=== PATIENT | female | born 1985 | race Hispanic/Latino ===

== ENCOUNTER 2017-07-27 00:19 | Inpatient (IN) | payer BC, MEDICAID ==
--- NOTE | 2017-07-27 01:01 | ED PDOC ---
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 Pain x 2 days. Has happened before, had abdominal us earlier this year, showed fatty liver. Patient went to PMD yesterday with complaint was given unknown medication for N/V, sent home. Pt did not take med. No fevers/chills. Pain has been constant. Left sided in nature, no radiation. Has not been eating or drinking much past 2 days. Denies urinary/vaginal sx. Vomited x 3 -vomitus looked like food/clear liquid. FDLMP: sometime in June. 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 [place]. (Jason Muniz) Past Medical History - Provider Review Nursing Documentation Reviewed: Yes - Travel History Have you recently traveled outside [place] w/in the past 3 mons?: No - Infectious Disease Hx of Infectious Diseases: None - Tetanus Immunization Tetanus Immunization: Unknown - Reproductive Menopause: No - Cardiac Hx Cardiac Disorders: No - Pulmonary Hx Respiratory Disorders: No - Neurological Hx Neurological Disorder: Yes Hx Seizures: Yes Other/Comment: [place] De Liao syndrome - HEENT Hx HEENT Disorder: No - Renal Hx Renal Disorder: No - Endocrine/Metabolic Hx Endocrine Disorders: No - Hematological/Oncological Hx Blood Disorders: No - Integumentary Hx Dermatological Disorder: No - Musculoskeletal/Rheumatological Hx Musculoskeletal Disorders: No - Gastrointestinal Hx Gastrointestinal Disorders: No - Genitourinary/Gynecological Hx Genitourinary Disorders: No - Psychiatric Hx Psychophysiologic Disorder: No Hx Substance Use: No <Jason Muniz - Last Filed: 07/27/17 06:26> Family/Social History - Physician Review Nursing Documentation Reviewed: Yes Family/Social History: Diabetes, Other Smoking Status: Never Smoked Hx Alcohol Use: No Hx Substance Use: No Hx Substance Use Treatment: No <Jason Muniz - Last Filed: 07/27/17 06:26> Allergies/Home Meds <Jason Muniz - Last Filed: 07/27/17 06:26> <Christian Patrick - Last Filed: 07/27/17 06:52> Allergies/Adverse Reactions: Allergies No Known Allergies Allergy (Verified 07/27/17 00:34) Home Medications: Home Meds Medication Instructions Recorded Confirmed carBAMazepine [TEGretol] 37.5 ml PO DAILY 07/27/17 07/27/17 Review of Systems - Review of Systems Constitutional: absent: Fatigue, Weight Change, Fevers Eyes: absent: Vision Changes, Photophobia ENT: absent: Hearing Changes, Tinnitus Respiratory: absent: SOB, Cough Cardiovascular: absent: Chest Pain, Palpitations Gastrointestinal: Abdominal Pain, Constipation, Vomiting Genitourinary Female: absent: Dysuria, Frequency Musculoskeletal: absent: Arthralgias, Back Pain Skin: absent: Rash, Pruritis Neurological: absent: Headache, Dizziness Endocrine: absent: Diaphoresis, Polyuria Hemo/Lymphatic: absent: Adenopathy, Easy Bleeding Psychiatric: absent: Anxiety, Depression <Jason Muniz - Last Filed: 07/27/17 06:26> Physical Exam Vital Signs Reviewed: Yes Appearance: Positive for: Non-Toxic Pain Distress: Mild - Systems Exam Head: Present: Atraumatic, Normocephalic Pupils: Present: PERRL Extroacular Muscles: Present: EOMI Respiratory/Chest: Present: Clear to Auscultation, Good Air Exchange. No: Respiratory Distress Cardiovascular: Present: Normal S1, S2, Tachycardic Abdomen: Present: Tenderness, Normal Bowel Sounds. No: Distention, Peritoneal Signs, Rebound, Guarding, McBurney's Point Tender, Rovsing's Sign Present Upper Extremity: Present: Normal Inspection. No: Cyanosis, Edema Lower Extremity: Present: Normal Inspection. No: Edema Neurological: Present: CN II-XII Intact, Speech Normal Skin: Present: Warm, Dry Psychiatric: Present: Alert, Oriented x 3 <Jason Muniz - Last Filed: 07/27/17 06:26> Vital Signs Temp Pulse Resp BP Pulse Ox 07/27/17 06:46 100.1 F H 118 H 18 127/87 100 07/27/17 03:24 122 H 18 122/72 96 07/27/17 00:35 98.2 F 122 H 20 117/84 98 Medical Decision Making <Jaosn Muniz - Last Filed: 07/27/17 06:26> - Lab Interpretations I have reviewed the lab results: Yes - RAD Interpretation Contracts Advisor: Radiologist - EKG Interpretation Interpreted by ED Physician: Yes Type: 12 lead EKG <Christian Patrick - Last Filed: 07/27/17 06:52> ED Course and Treatment: Impression: Pt seen and evaluated with hospitalist medical director. Pt, whose past medical history includes Cornela de Liao syndrome, presented for abdomina pain for 2 days. Aware and agree with HPI, clinical findings, plan, and management. 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 07/27/17 06:[address] Flores, rolloff truck driver, awaiting call back. 07/27/17 06:[address] Flores, who is aware and states he will follow-up outpatient. 07/27/17 06:[address] Jones, requests surgical consult, Dr. Saeed silva. (Christian Patrick) - Lab Interpretations Lab Results: 07/27/17 01:05 07/27/17 01:05 Lab Results 07/27/17 02:20: Urine Color Yellow, Urine Appearance Sl cloudy, Urine pH 6.0, Ur Specific [place] >= 1.030, Urine Protein 100 H, Urine Glucose (UA) Negative, Urine Ketones >=80, Urine Blood Large H, Urine Nitrate Negative, Urine Bilirubin Moderate H, Urine Urobilinogen 1.0 H, Ur Leukocyte Esterase Negative, Urine RBC 10 - 15, Urine WBC 5 - 10, Ur Epithelial Cells 4 - 5, Urine Bacteria Many, Urine Other Uyeast, Urine HCG, Qual Negative 07/27/17 01:05: TSH 3rd Generation 0.95 07/27/17 01:05: pO2 91 H, VBG pH 7.40, VBG pCO2 38.0 L, VBG HCO3 23.5, VBG Total CO2 24.7, VBG O2 Sat (Calc) 99.1 H, VBG Base Excess -1.1 L, VBG Potassium 4.1, Sodium 139.0, Chloride 103.0, Glucose 139 H, Lactate 2.0, FiO2 21.0, Venous Blood Potassium 4.1 07/27/17 01:05: Sodium 143, Chloride 104, Potassium 3.3 L, Carbon Dioxide 23, Anion Gap 20, BUN 11, Creatinine 0.7, Est GFR ( Amer) > 60, Est GFR (Non- Af Amer) > 60, Random Glucose 130 H, Calcium 9.1, Total Bilirubin 1.1, AST 23, ALT 30, Alkaline Phosphatase 81, Total Protein 8.5 H, Albumin 4.5, Globulin 4.0 , Albumin/Globulin Ratio 1.1, Amylase 45, Lipase 31 07/27/17 01:05: WBC 22.6 H, RBC 4.57, Hgb 12.6, Hct 38.1, MCV 83.4, MCH 27.6, MCHC 33.1, RDW 14.5, Plt Count 392, MPV 9.7, Gran % 86.0 H, Lymph % (Auto) 6.8 L , Pepin % (Auto) 7.1 H, Eos % (Auto) 0.0 L, Baso % (Auto) 0.1, Gran # 19.46 H, Lymph # 1.5, Pepin # 1.6 H, Eos # 0.0, Baso # 0.02 - RAD Interpretation Radiology Orders: 07/27/17 00:55 ABD & PELVIS IV CONTRAST ONLY [CT] Stat - Medication Orders Current Medication Orders: Acetaminophen (Tylenol 325mg Tab) 650 mg PO Q4H PRN PRN Reason: Pain, Mild (1-3) Sodium Chloride (Sodium Chloride 0.9%) 1,000 mls @ 100 mls/hr IV .Q10H JASON Last Admin: 07/27/17 01:19 Dose: 999 mls/hr Comments: administered as bolus as per verbal order from Dr. Darnell Lassiter Start Stop Document 07/27/17 01:19 YP (Rec: 07/27/17 01:19 YP [id number]) Intravenous Solution Start Date 07/27/17 Start Time 01:05 End Date 07/27/17 End time 02:05 Total Infusion Time 60 Sodium Chloride (Sodium Chloride 0.9%) 1,000 mls @ 100 mls/hr IV .Q10H STA Stop: 07/27/17 15:21 Last Admin: 07/27/17 05:31 Dose: 100 mls/hr eMAR Start Stop Document 07/27/17 05:31 RD (Rec: 07/27/17 05:31 RD [id number]) Intravenous Solution Start Date 07/27/17 Start Time 05:31 Morphine Sulfate (Morphine) 2 mg IVP Q4H PRN PRN Reason: Pain, moderate (4-7) Ondansetron HCl (Zofran Inj) 4 mg IVP Q4H PRN PRN Reason: Nausea/Vomiting Discontinued Medications Acetaminophen (Tylenol 325mg Tab) 650 mg PO STAT STA Stop: 07/27/17 06:49 Potassium Chloride (Potassium Chloride 20 Meq/100 Ml) 20 meq in 100 mls @ 50 mls/hr IVPB ONCE ONE Stop: 07/27/17 06:13 Last Admin: 07/27/17 04:29 Dose: 50 mls/hr eMAR Start Stop Document 07/27/17 04:29 RD (Rec: 07/27/17 04:29 RD [id number]) Intravenous Solution Start Date 07/27/17 Start Time 04:29 End Date 07/27/17 End time 06:29 Total Infusion Time 120 Aztreonam (Azactam 1 Gm) 100 mls @ 100 mls/hr IVPB STAT STA PRN Reason: Protocol Stop: 07/27/17 06:09 Metronidazole (Flagyl) 500 mg in 100 mls @ 100 mls/hr IVPB STAT STA PRN Reason: Protocol Stop: 07/27/17 06:08 Last Admin: 07/27/17 06:41 Dose: 100 mls/hr eMAR Start Stop Document 07/27/17 06:41 RD (Rec: 07/27/17 06:41 RD [id number]) Intravenous Solution Start Date 07/27/17 Start Time 06:41 End Date 07/27/17 End time 07:41 Total Infusion Time 60 Morphine Sulfate (Morphine) 2 mg IVP STAT STA Stop: 07/27/17 02:51 Last Admin: 07/27/17 02:56 Dose: 2 mg MAR Pain Assessment Document 07/27/17 02:56 RD (Rec: 07/27/17 02:56 RD [id number]) Pain Reassessment Is this a pain reassessment? No Sleep Is patient sleeping during reassessment? No Presence of Pain Presence of Pain Yes IVP Administration Document 07/27/17 02:56 RD (Rec: 07/27/17 02:56 RD [id number]) Charges for Administration # of IVP Administrations 1 Morphine Sulfate (Morphine) 2 mg IVP STAT STA Stop: 07/27/17 05:20 Last Admin: 07/27/17 05:31 Dose: 2 mg MAR Pain Assessment Document 07/27/17 05:31 RD (Rec: 07/27/17 05:31 RD [id number]) Pain Reassessment Is this a pain reassessment? Yes Sleep Is patient sleeping during reassessment? No Presence of Pain Presence of Pain Yes IVP Administration Document 07/27/17 05:31 RD (Rec: 07/27/17 05:31 RD [id number]) Charges for Administration # of IVP Administrations 1 Disposition/Present on Arrival - Present on Arrival Any Indicators Present on Arrival: No History of DVT/PE: No History of Uncontrolled Diabetes: No Urinary Catheter: No History of Decub. Ulcer: No History Surgical Site Infection Following: None - Disposition Have Diagnosis and Disposition been Completed?: Yes Disposition Time: 06:00 <Jason Muniz - Last Filed: 07/27/17 06:26> <Christian Patrick - Last Filed: 07/27/17 06:52> - Disposition Diagnosis: Pelvic mass in female Disposition: HOSPITALIZED Patient Problems: Current Active Problems Problem Status Onset Pelvic mass in female Acute Condition: GUARDED
[2017-07-27] MEDS: Sodium Chloride 0.9% 1,000 ML IV SCH ×3 (01:19→20:31)
[2017-07-27 01:27] LABS: BASO # 0.02 K/mm3 (0.0-2.0); BASO % 0.1 % (0.0-3.0); GRAN # 19.46 (1.4-6.5); HEMATOCRIT 38.1 % (36.0-48.0); LYMPH # 1.5 (1.2-3.4); LYMPH % 6.8 % (22.0-35.0); MEAN CELL VOLUME 83.4 fl (80.0-105.0); MEAN CORPUSCULAR HEMOGLOBIN 27.6 pg (25.0-35.0); MEAN CORPUSCULAR HGB CONC 33.1 g/dl (31.0-37.0); MEAN PLATELET VOLUME 9.7 fl (7.0-11.0); MONO # 1.6 (0.1-0.6); MONO % 7.1 % (1.0-6.0); RED CELL DISTRIBUTION WIDTH 14.5 % (11.5-14.5); WHITE BLOOD COUNT 22.6 10^3/ul (4.5-11.0)
[2017-07-27 02:22] LABS: ALKALINE PHOSPHATASE 81 U/L (38-126); ALT/SGPT 30 U/L (7-56); AMYLASE 45 U/L (35-125); AST/SGOT 23 U/L (14-36); BILIRUBIN,TOTAL 1.1 mg/dL (0.2-1.3); BLOOD UREA NITROGEN 11 mg/dL (7-21); CALCIUM 9.1 mg/dL (8.4-10.5); CARBON DIOXIDE 23 mmol/L (21-33); CHLORIDE 104 mmol/L (98-107); GFR AFRICAN-AMERICAN > 60; GLUCOSE,RANDOM 130 mg/dL (70-110); LIPASE 31 U/L (23-300); POTASSIUM 3.3 mmol/L (3.6-5.0); SODIUM 143 mmol/L (132-148); TOTAL PROTEIN 8.5 g/dL (5.8-8.3)
[2017-07-27] MEDS ORDERED: Iohexol 350 MG/100 ML VIAL ONE (02:42)
[2017-07-27 02:44] LABS: ALB/GLOB RATIO 1.1 (1.1-1.8)
[2017-07-27 02:46] LABS: URINE BILIRUBIN MODERATE (NEGATIVE); URINE BLOOD LARGE (NEGATIVE); URINE GLUCOSE (UA) NEGATIVE (NEGATIVE); URINE KETONE >=80 mg/dL (NEGATIVE); URINE LEUKOCYTE ESTERASE NEGATIVE Leu/uL (NEGATIVE); URINE PROTEIN 100 mg/dL (<30 mg/dL)
[2017-07-27 02:47] LABS: URINE APPEARANCE SL CLOUDY (CLEAR); URINE COLOR YELLOW (YELLOW)
[2017-07-27] MEDS ORDERED: Morphine 2 mg/ml ISec IVP STA ×2 (02:50→05:19)
[2017-07-27 03:06] LABS: URINE BACTERIA MANY (NEG)
--- NOTE | 2017-07-27 04:35 | CT ---
EXAM: CT Abdomen and Pelvis With Intravenous Contrast EXAM DATE/TIME: 07/27/2017 12:55 AM CLINICAL HISTORY: 31 years old, female; Pain; Abdominal pain; Generalized TECHNIQUE: Axial computed tomography images of the abdomen and pelvis with intravenous contrast. All CT scans at this facility use one or more dose reduction techniques, viz.: automated exposure control; ma/kV adjustment per patient size (including targeted exams where dose is matched to indication; i.e. head); or iterative reconstruction technique. MIP reconstructed images were created and reviewed. Coronal and sagittal reformatted images were created and reviewed. CONTRAST: 95 mL of omni 350 administered intravenously. COMPARISON: None is available. FINDINGS: LIMITATIONS: Mild streak/motion artifact. LOWER THORAX: No infiltrate seen in the lung bases. ABDOMEN: LIVER: Fatty infiltration of the liver. No liver lesions are seen. GALLBLADDER AND BILE DUCTS: Calcifications in the gallbladder neck region, most likely secondary to peripherally calcified gallstones. Biliary ductal dilatation, with the common bile duct measuring up to 1 cm in diameter. No cause for this finding is seen by CT. No CT evidence of acute cholecystitis. PANCREAS: No CT evidence of acute pancreatitis. SPLEEN: No acute abnormality of the spleen identified. ADRENALS: No acute abnormality of the adrenal glands identified. KIDNEYS AND URETERS: Scattered tiny fluid density lesions in the kidneys bilaterally. The largest of these measures 6 mm. Consistent with the [employer]?s Incidental Findings Committee Report (J Am Rhett Radiol 2010): Unless the patient?s specific circumstances suggest otherwise, any cystic kidney lesion less than 1.0 cm not otherwise characterized in this report as possessing suspicious or indeterminate imaging features is/are highly likely to be benign and do not require follow-up imaging or biopsy. No acute abnormality of the kidneys identified. STOMACH AND BOWEL: Scattered fluid-filled and mildly dilated small bowel loops are seen. There is no definite single abrupt transition point seen in the small bowel. There is no evidence of diffuse small bowel dilatation. Findings are most likely due to a mild ileus of the small bowel. Otherwise, no significant abnormality of the bowel is identified. APPENDIX: Normal appendix is not seen, however, there are no significant inflammatory changes visualized in the expected location of the appendix to suggest appendicitis. Recommend clinical correlation. PELVIS: BLADDER: No acute abnormality of the bladder identified. REPRODUCTIVE: Large, round cystic mass in the upper pelvis and lower abdomen, highly suspicious for a right ovarian/adnexal cystic mass. This measures 11 x 11 x 10 cm. It has an overall CT attenuation compatible with simple fluid and an enhancing soft tissue rim. No definite associated calcifications, large internal solid components, or associated gas. This mass appears to connect with the right ovary, image 89/series 604. There is mild, diffuse infiltration of the nearby abdominal and pelvic fat and a small amount of nearby pelvic fluid. Uterus demonstrates two separate endometrial canals. Findings highly suspicious for an underlying Mullerian duct anomaly, such as a bicornuate uterus or septate uterus. ABDOMEN and PELVIS: INTRAPERITONEAL SPACE: Small to moderate amount of pelvic and abdominal free fluid. No evidence of free air. BONES/JOINTS: No acute fractures or other acute bony abnormality noted. SOFT TISSUES: No acute abnormality of the visualized soft tissues is seen. VASCULATURE: No evidence of abdominal aortic aneurysm. No evidence of periaortic hemorrhage. LYMPH NODES: No evidence of diffuse lymphadenopathy. IMPRESSION: - 11 x 11 cm round, cystic mass in the upper pelvis and lower abdomen, highly suspicious for a large right ovarian/adnexal cystic mass. Given the size of this lesion, a cystic ovarian neoplasm is not excluded. Pelvic ultrasound or MRI would be helpful for further evaluation. - Small to moderate amount of pelvic and abdominal free fluid. - Small bowel findings which are most likely due to a mild ileus of the small bowel. - Biliary ductal dilatation, cause not identified. Recommend correlation with LFTs for laboratory evidence of biliary obstruction, and further workup as indicated, such as with right upper quadrant ultrasound. - Otherwise, no evidence of significant acute process. - Gallstones, with no CT evidence of acute cholecystitis. - Uterus findings highly suspicious for an underlying Mullerian duct anomaly, such as a bicornuate uterus or septate uterus. - See above for remaining findings.
[2017-07-27 04:45] LABS: VENOUS BLOOD GAS BASE EXCESS -1.1 mmol/L (0.0-2.0)
[2017-07-27] MEDS ORDERED: metroNIDAZOLE IV 500 mg/100 ml 500 MG/100 ML BAG IVPB STA (05:09)
[2017-07-27] MEDS ORDERED: Aztreonam 1 Gm in NS 100mL 100 ML IVPB STA (05:10)
[2017-07-27] MEDS ORDERED: Sodium Chloride 0.9% 1,000 ML IV STA (05:22)
[2017-07-27] MEDS ORDERED: Morphine 2 mg/ml ISec IVP PRN (05:23)
[2017-07-27 08:54] VITALS: BMI 39.4
--- NOTE | 2017-07-27 09:23 | CP.PCM.CON ---
<Porter Vazquez - Last Filed: 07/27/17 09:41> History of Present Illness - History of Present Illness History of Present Illness: General Surgery Consult For Dr. 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 She denies any similar events in the past. She denies any pain with menstruation and reports a highly irregular menstrual cycle. Abdominal CT in the ED showed a large ovarian cyst and fluid in the pelvis as well as a dilated CBD. PMH: marta de hillman syndrome PSH: had 10 teeth removed, foot sx Allergies: NKDA FH: DM, Crohn's dx Review of Systems - Review of Systems All systems: reviewed and no additional remarkable complaints except Past Patient History - Infectious Disease Hx of Infectious Diseases: None - Tetanus Immunizations Tetanus Immunization: Unknown - Past Social History Smoking Status: Never Smoked - CARDIAC Hx Cardiac Disorders: No - PULMONARY Hx Respiratory Disorders: No - NEUROLOGICAL Hx Neurological Disorder: Yes (weakness) - HEENT Hx HEENT Problems: No - RENAL Hx Chronic Kidney Disease: No - ENDOCRINE/METABOLIC Hx Endocrine Disorders: No - HEMATOLOGICAL/ONCOLOGICAL Hx Blood Disorders: No - INTEGUMENTARY Hx Dermatological Problems: No - MUSCULOSKELETAL/RHEUMATOLOGICAL Hx Falls: No - GASTROINTESTINAL Other/Comment: n/v/d - GENITOURINARY/GYNECOLOGICAL Hx Urinary Tract Infection: Yes - PSYCHIATRIC Hx Psychophysiologic Disorder: No Hx Substance Use: No - SURGICAL HISTORY Hx Surgeries: Yes (flat foot correction bilateral) Meds Allergies/Adverse Reactions: Allergies Allergy/AdvReac Type Severity Reaction Status Date / Time No Known Allergies Allergy Verified 07/27/17 00:34 - Medications Medications: Current Medications Acetaminophen (Tylenol 325mg Tab) 650 mg PO Q4H PRN PRN Reason: Pain, Mild (1-3) Sodium Chloride (Sodium Chloride 0.9%) 1,000 mls @ 100 mls/hr IV .Q10H JASON Last Admin: 07/27/17 01:19 Dose: 999 mls/hr Sodium Chloride (Sodium Chloride 0.9%) 1,000 mls @ 100 mls/hr IV .Q10H STA Stop: 07/27/17 15:21 Last Admin: 07/27/17 05:31 Dose: 100 mls/hr Morphine Sulfate (Morphine) 2 mg IVP Q4H PRN PRN Reason: Pain, moderate (4-7) Ondansetron HCl (Zofran Inj) 4 mg IVP Q4H PRN PRN Reason: Nausea/Vomiting Physical Exam - Constitutional Appears: Non-toxic, No Acute Distress - Head Exam Head Exam: ATRAUMATIC, NORMOCEPHALIC - Eye Exam Eye Exam: EOMI - ENT Exam ENT Exam: Mucous Membranes Moist - Respiratory Exam Respiratory Exam: NORMAL BREATHING PATTERN - Cardiovascular Exam Cardiovascular Exam: REGULAR RHYTHM - GI/Abdominal Exam GI & Abdominal Exam: Soft. absent: Tenderness - Neurological Exam Neurological exam: Alert, Oriented x3 - Psychiatric Exam Psychiatric exam: Normal Affect, Normal Mood - Skin Skin Exam: Dry, Intact Results - Vital Signs Recent Vital Signs: Last Vital Signs Temp 99.3 F 07/27/17 08:32 Pulse 124 H 07/27/17 08:32 Resp 18 07/27/17 08:32 BP 115/75 07/27/17 08:32 Pulse Ox 100 07/27/17 06:46 - Labs Result Diagrams: 07/27/17 01:05 07/27/17 01:05 Assessment & Plan - Assessment and Plan (Free Text) Assessment: This is a 31F with a large ovarian cyst Recommend IR evaluation for aspiration Abdominal US for evaluation of CBD Pelvic US for US evaluation of Ovarian Cyst Will continue to follow D/W Dr. Saeed Vazquez PGY2 <Santhosh Tipton - Last Filed: 07/28/17 12:44> Meds - Medications Medications: Current Medications Acetaminophen (Tylenol 325mg Tab) 650 mg PO Q4H PRN PRN Reason: Pain, Mild (1-3) Sodium Chloride (Sodium Chloride 0.9%) 1,000 mls @ 100 mls/hr IV .Q10H JASON Last Admin: 07/27/17 01:19 Dose: 999 mls/hr Sodium Chloride (Sodium Chloride 0.9%) 1,000 mls @ 100 mls/hr IV .Q10H STA Stop: 07/27/17 15:21 Last Admin: 07/27/17 05:31 Dose: 100 mls/hr Morphine Sulfate (Morphine) 2 mg IVP Q4H PRN PRN Reason: Pain, moderate (4-7) Ondansetron HCl (Zofran Inj) 4 mg IVP Q4H PRN PRN Reason: Nausea/Vomiting Results - Vital Signs Recent Vital Signs: Last Vital Signs Temp 99.3 F 07/27/17 08:32 Pulse 124 H 07/27/17 08:32 Resp 18 07/27/17 08:32 BP 115/75 07/27/17 08:32 Pulse Ox 100 07/27/17 06:46 - Labs Result Diagrams: 07/28/17 09:10 07/28/17 09:10 Labs: Laboratory Results - last 24 hr 07/27/17 09:30 pO2 65 H VBG pH 7.38 VBG pCO2 35.0 L VBG HCO3 20.7 L VBG Total CO2 21.8 L VBG O2 Sat (Calc) 95.0 H VBG Base Excess -3.8 L VBG Potassium 3.2 L Sodium 141.0 Chloride 112.0 H Glucose 121 H Lactate 1.2 FiO2 21.0 Venous Blood Potassium 3.2 L Assessment & Plan - Assessment and Plan (Free Text) Assessment: Pt has Ileus(N/V) secondary to Large R Ovarian cyst(Leaking) and 10mm CD Dilation Surgery not imminwnt now Poss Laparoscopy vs CT Guided Aspiration This consult done under my direct supervision Brittany Tipton MD FACS Plan: This consult done under my direct supervision Brittany Tipton MD FACS
--- NOTE | 2017-07-27 09:27 | CARD ---
APPROVED REPORT EKG Measurement Heart [id number] HI [id number] <Conclusion> Sinus tachycardia Voltage criteria for left ventricular hypertrophy PRWP NSSTW changes
[2017-07-27 10:12] LABS: VENOUS BLOOD GAS BASE EXCESS -3.8 mmol/L (0.0-2.0); VENOUS BLOOD PH 7.38 (7.32-7.43)
[2017-07-27] MEDS: cefTRIAXone 1 gm 1 GM/100 ML BAG IVPB SCH (11:52)
[2017-07-27] MEDS: metroNIDAZOLE IV 500 mg/100 ml 500 MG/100 ML BAG IVPB SCH ×2 (14:14→22:25)
--- NOTE | 2017-07-27 15:04 | US ---
HISTORY: CBD COMPARISON: CT 07/27/2017 TECHNIQUE: Sonographic evaluation of the abdomen. FINDINGS: LIVER: Measures 14.71 x 9.66 cm. Normal echogenicity of the liver parenchyma. No mass. No intrahepatic bile duct dilatation. GALLBLADDER: Gallstones. No inflammatory changes. No focal tenderness COMMON BILE DUCT: Measures 8.8 mm. No stones. No dilatation. PANCREAS: Not visualize RIGHT KIDNEY: Measures 9.55 x 4.25 x 5.35cm. Normal echogenicity. No calculus, mass, or hydronephrosis. LEFT KIDNEY: Measures 10.11 x 5.35 x 5.16cm. Normal echogenicity. No calculus, mass, or hydronephrosis. SPLEEN: Normal in size and contour. No mass. 10.0 x 4.1 AORTA: Not visualize IVC: Not visualize OTHER FINDINGS: As seen on CT there is a cystic lesion in the pelvis that extends into the lower abdomen. This measures 11 x 12 cm. Minimal internal echoes are seen. IMPRESSION: Cystic lesion in the pelvis extending into the lower abdomen. Gallstones.
--- NOTE | 2017-07-27 15:09 | US ---
HISTORY: Ovarian Cyst COMPARISON: CT scan 07/27/2017 TECHNIQUE: FINDINGS: UTERUS: There is a bicornuate uterus. ENDOMETRIUM: There is thickening of the endometrium which measures 1.5 cm CERVIX: No cervical abnormality identified. RIGHT OVARY: There is a large cystic lesion in the right ovary extending into the lower abdomen. This measures 10 cm in diameter. Minimal internal echoes are seen. There are no septations or solid components. Blood flow is seen in the wall of the cyst. LEFT OVARY: Measures 3.5 x 2.25 x 3.06 cm. No solid mass. Normal flow. There is a 3 by 1.6 x 2.6 cm cyst in the left ovary FREE FLUID: No significant free fluid noted. OTHER FINDINGS: None. IMPRESSION: 10 cm cystic lesion in the right ovary extending into the lower abdomen. Bicornuate or septated uterus
--- NOTE | 2017-07-27 21:53 | HP ---
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 The patient is not able to give much history. Father was at the bedside who states she was doing okay up until day when she came back from a little get together with the family, she started to throw up. She was complaining of some abdominal discomfort and had nausea and had two or three episodes of vomiting. No history of hemoptysis. No hematemesis. No rectal bleeding. According to father she had multiple foot surgeries. She is able to ambulate on her own with minimal assistance. She also has history of seizure disorder, she has been on Tegretol, at one point it stopped, but she started to have seizures again, so she was placed back on that. Her durable medical equipment technician Dr. Padilla, who has been taking care of her happened to be her cousin also, informed me that usually with this syndrome people can have small bowel issues, but she has been [place] so far she has never had any bowel obstruction or any problem. Her history is also significant for irregular bleeding. However, she does not go to any FIELD CASE [facility]NAGER for that. ALLERGIES: SHE IS NOT ALLERGIC TO ANY MEDICATION. MEDICATION: At home; she is on Tegretol 37.5 mg p.o. daily. SOCIAL HISTORY: She lives with her father. No history of smoking or alcohol use. REVIEW OF SYSTEMS: She has some left lower quadrant discomfort, but no vomiting. So, she is admitted. PHYSICAL EXAMINATION GENERAL: She is awake and alert, able to communicate. VITAL SIGNS: She has a temperature 100.1, this morning it is 99.3, pulse 124, respirations 18, blood pressure 115/75. LUNGS: Bilateral good airflow. No rhonchi or crackle. HEART: S1 and S2 audible. ABDOMEN: Soft. Not distended. NEUROLOGICAL: She is awake, alert, and able to communicate. LABORATORY DATA: WBC 22.6, hemoglobin 12.6, hematocrit 38.1, platelet of 392. Chemistry; sodium 143, potassium 3.3, chloride 104, CO2 of 23, BUN 11, creatinine 0.7, and blood sugar 130. LFTs are within normal limits. Urinalysis shows moderate bilirubin and large blood. She had CT scan of the abdomen and pelvis done, it shows 11 x 11 cm round cystic mass in the upper pelvis and lower abdomen highly suspicious for large right ovarian cyst. Small to moderate amount of pelvic, abdominal free fluid, small bowel finding are most likely due to mild ileus of small bowel, biliary ductal dilatation not identified. She has gallstone with no evidence of cholecystitis. ASSESSMENT: 1. Fever etiology unknown yet. 2. Ovarian cyst. 3. Small bowel ileus. 4. 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 PLAN: We will keep the patient n.p.o., we will give her IV fluid. We will start her on Rocephin and metronidazole. Flagyl and supplement potassium. Follow up CBC and CMP in a.m. Juan Manuel Jones MD
[2017-07-27] MEDS ORDERED: CARBAMAZEPINE 100 MG/5 ML PO SCH (22:00)
[2017-07-27] MEDS ORDERED: carBAMazepine Chew Tab 100 MG Chew Tab PO SCH (22:13)
[2017-07-27] MEDS: carBAMazepine Chew Tab 100 MG Chew Tab PO SCH (22:25)
[2017-07-28] MEDS: metroNIDAZOLE IV 500 mg/100 ml 500 MG/100 ML BAG IVPB SCH ×3 (05:45→22:07)
[2017-07-28] MEDS: Sodium Chloride 0.9% 1,000 ML IV SCH ×2 (07:30→18:00)
[2017-07-28] MEDS ORDERED: Loperamide Hydrochloride 1 mg/5 ml Cup PO ONE (09:00)
[2017-07-28 09:29] LABS: BASO # 0.01 K/mm3 (0.0-2.0); BASO % 0.1 % (0.0-3.0); EOS % 0.2 % (1.5-5.0); GRAN # 11.75 (1.4-6.5); GRAN % 84.7 % (50.0-68.0); HEMATOCRIT 31.9 % (36.0-48.0); LYMPH # 1.3 (1.2-3.4); LYMPH % 9.4 % (22.0-35.0); MEAN CELL VOLUME 84.4 fl (80.0-105.0); MEAN CORPUSCULAR HEMOGLOBIN 27.2 pg (25.0-35.0); MEAN CORPUSCULAR HGB CONC 32.3 g/dl (31.0-37.0); MEAN PLATELET VOLUME 9.7 fl (7.0-11.0); MONO # 0.8 (0.1-0.6); MONO % 5.6 % (1.0-6.0); WHITE BLOOD COUNT 13.9 10^3/ul (4.5-11.0)
[2017-07-28 09:31] LABS: ALKALINE PHOSPHATASE 59 U/L (38-126); ALT/SGPT 29 U/L (7-56); AST/SGOT 23 U/L (14-36); BILIRUBIN,TOTAL 0.8 mg/dL (0.2-1.3); BLOOD UREA NITROGEN 6 mg/dL (7-21); CALCIUM 8.5 mg/dL (8.4-10.5); CARBON DIOXIDE 20 mmol/L (21-33); CHLORIDE 109 mmol/L (98-107); GFR AFRICAN-AMERICAN > 60; GLUCOSE,RANDOM 110 mg/dL (70-110); POTASSIUM 3.4 mmol/L (3.6-5.0); SODIUM 141 mmol/L (132-148)
[2017-07-28] MEDS: cefTRIAXone 1 gm 1 GM/100 ML BAG IVPB SCH (10:05)
--- NOTE | 2017-07-28 12:29 | CP.PCM.PN ---
<Lee Cody - Last Filed: 07/28/17 12:25> Subjective - Date & Time of Evaluation Date of Evaluation: 07/28/17 Time of Evaluation: 12:29 - Subjective Subjective: PGY1 Note for Dr. Tipton Patient seen and examined at bedside. Patient is sitting up in bed with family at bedside. Pain free. Complaining of new onset diarrhea. No other complaints at this time Objective - Vital Signs/Intake and Output Vital Signs (last 24 hours): Temp Pulse Resp BP Pulse Ox 99.9 F H 107 H 20 127/74 95 07/28/17 06:00 07/28/17 06:00 07/28/17 06:00 07/28/17 06:00 07/28/17 06:00 Intake and Output: 07/28/17 07/28/17 06:59 18:59 Intake Total 2700 Balance 2700 - Medications Medications: Current Medications Acetaminophen (Tylenol 325mg Tab) 650 mg PO Q4H PRN PRN Reason: Pain, Mild (1-3) Carbamazepine (Tegretol) 100 mg PO HS JASON PRN Reason: Protocol Last Admin: 07/27/17 22:25 Dose: 100 mg Sodium Chloride (Sodium Chloride 0.9%) 1,000 mls @ 100 mls/hr IV .Q10H JASON Last Admin: 07/28/17 07:30 Dose: 100 mls/hr Ceftriaxone Sodium (Rocephin 1 Gram Ivpb) 1 gm in 100 mls @ 100 mls/hr IVPB DAILY JASON PRN Reason: Protocol Last Admin: 07/28/17 10:05 Dose: 100 mls/hr Metronidazole (Flagyl) 500 mg in 100 mls @ 100 mls/hr IVPB Q8 JASON PRN Reason: Protocol Last Admin: 07/28/17 05:45 Dose: 100 mls/hr Potassium Chloride (Potassium Chloride 20 Meq/100 Ml) 20 meq in 100 mls @ 50 mls/hr IVPB ONCE ONE Stop: 07/28/17 13:44 Last Admin: 07/28/17 11:46 Dose: 50 mls/hr Morphine Sulfate (Morphine) 2 mg IVP Q4H PRN PRN Reason: Pain, moderate (4-7) Ondansetron HCl (Zofran Inj) 4 mg IVP Q4H PRN PRN Reason: Nausea/Vomiting Pantoprazole Sodium (Protonix Inj) 40 mg IVP DAILY [facility] Last Admin: 07/28/17 10:05 Dose: 40 mg - Labs Labs: 07/28/17 09:10 07/28/17 09:10 - Constitutional Appears: Non-toxic - Head Exam Head Exam: ATRAUMATIC, NORMAL INSPECTION, NORMOCEPHALIC - Eye Exam Pupil Exam: NORMAL ACCOMODATION - ENT Exam ENT Exam: Mucous Membranes Moist - Respiratory Exam Respiratory Exam: Clear to Ausculation Bilateral - Cardiovascular Exam Cardiovascular Exam: REGULAR RHYTHM - GI/Abdominal Exam GI & Abdominal Exam: Soft, Normal Bowel Sounds. absent: Distended, Tenderness - Neurological Exam Neurological Exam: Alert, Awake, Oriented x3 - Psychiatric Exam Psychiatric exam: Normal Affect, Normal Mood - Skin Skin Exam: Dry, Intact, Normal Color, Warm Assessment and Plan - Assessment and Plan (Free Text) Assessment: 31F w/ R Ovarian cyst Plan: * F/U OBGYN Recs * Possible CT Guided Aspiration w/ IR * Further management per primary team * Further reccs per Dr. Tipton <Santhosh Tipton - Last Filed: 07/28/17 12:47> Objective - Vital Signs/Intake and Output Vital Signs (last 24 hours): Temp Pulse Resp BP Pulse Ox 99.9 F H 107 H 20 127/74 95 07/28/17 06:00 07/28/17 06:00 07/28/17 06:00 07/28/17 06:00 07/28/17 06:00 Intake and Output: 07/28/17 07/28/17 06:59 18:59 Intake Total 2700 Balance 2700 - Medications Medications: Current Medications Acetaminophen (Tylenol 325mg Tab) 650 mg PO Q4H PRN PRN Reason: Pain, Mild (1-3) Carbamazepine (Tegretol) 100 mg PO HS JASON PRN Reason: Protocol Last Admin: 07/27/17 22:25 Dose: 100 mg Sodium Chloride (Sodium Chloride 0.9%) 1,000 mls @ 100 mls/hr IV .Q10H JASON Last Admin: 07/28/17 07:30 Dose: 100 mls/hr Ceftriaxone Sodium (Rocephin 1 Gram Ivpb) 1 gm in 100 mls @ 100 mls/hr IVPB DAILY JASON PRN Reason: Protocol Last Admin: 07/28/17 10:05 Dose: 100 mls/hr Metronidazole (Flagyl) 500 mg in 100 mls @ 100 mls/hr IVPB Q8 JASON PRN Reason: Protocol Last Admin: 07/28/17 05:45 Dose: 100 mls/hr Potassium Chloride (Potassium Chloride 20 Meq/100 Ml) 20 meq in 100 mls @ 50 mls/hr IVPB ONCE ONE Stop: 07/28/17 13:44 Last Admin: 07/28/17 11:46 Dose: 50 mls/hr Morphine Sulfate (Morphine) 2 mg IVP Q4H PRN PRN Reason: Pain, moderate (4-7) Ondansetron HCl (Zofran Inj) 4 mg IVP Q4H PRN PRN Reason: Nausea/Vomiting Pantoprazole Sodium (Protonix Inj) 40 mg IVP DAILY [facility] Last Admin: 07/28/17 10:05 Dose: 40 mg - Labs Labs: 07/28/17 09:10 07/28/17 09:10 Assessment and Plan - Assessment and Plan (Free Text) Assessment: If Affiliate Marketing Coordinator cannot see this pt Dr Rodriguez is willing to aspirate the cyst for symptom relief and determine absent malignancy--NB The is mod free fluid(ie leakage) This can be done tomorrow if the family agrees Brittany Tipton MD FACS
--- NOTE | 2017-07-28 16:41 | CP.PCM.CON ---
History of Present Illness - History of Present Illness History of Present Illness: 31-year-old female admitted to [facility] approximately 2-1/2 days ago due to abdominal pain. Patient found to have a 10 cm simple cyst. Since admission to hospital, patient reports pain has subsided. Patient denies any pain at this time. Patient reports discomfort of 0 out of 10. I discussed with patient general information regarding ovarian cysts. At this time, patient denies any pain, nausea or vomiting, abnormal bleeding, discharge , dysuria. Past Patient History - Infectious Disease Hx of Infectious Diseases: None - Tetanus Immunizations Tetanus Immunization: Unknown - Past Social History Smoking Status: Never Smoked - CARDIAC Hx Cardiac Disorders: No - PULMONARY Hx Respiratory Disorders: No - NEUROLOGICAL Hx Neurological Disorder: Yes (weakness) - HEENT Hx HEENT Problems: No - RENAL Hx Chronic Kidney Disease: No - ENDOCRINE/METABOLIC Hx Endocrine Disorders: No - HEMATOLOGICAL/ONCOLOGICAL Hx Blood Disorders: No - INTEGUMENTARY Hx Dermatological Problems: No - MUSCULOSKELETAL/RHEUMATOLOGICAL Hx Falls: No - GASTROINTESTINAL Other/Comment: n/v/d - GENITOURINARY/GYNECOLOGICAL Hx Urinary Tract Infection: Yes - PSYCHIATRIC Hx Psychophysiologic Disorder: No Hx Substance Use: No - SURGICAL HISTORY Hx Surgeries: Yes (flat foot correction bilateral) Meds Allergies/Adverse Reactions: Allergies Allergy/AdvReac Type Severity Reaction Status Date / Time No Known Allergies Allergy Verified 07/27/17 00:34 - Medications Medications: Current Medications Acetaminophen (Tylenol 325mg Tab) 650 mg PO Q4H PRN PRN Reason: Pain, Mild (1-3) Carbamazepine (Tegretol) 100 mg PO HS JASON PRN Reason: Protocol Last Admin: 07/27/17 22:25 Dose: 100 mg Sodium Chloride (Sodium Chloride 0.9%) 1,000 mls @ 100 mls/hr IV .Q10H JASON Last Admin: 07/28/17 07:30 Dose: 100 mls/hr Ceftriaxone Sodium (Rocephin 1 Gram Ivpb) 1 gm in 100 mls @ 100 mls/hr IVPB DAILY JASON PRN Reason: Protocol Last Admin: 07/28/17 10:05 Dose: 100 mls/hr Metronidazole (Flagyl) 500 mg in 100 mls @ 100 mls/hr IVPB Q8 JASON PRN Reason: Protocol Last Admin: 07/28/17 14:53 Dose: 100 mls/hr Morphine Sulfate (Morphine) 2 mg IVP Q4H PRN PRN Reason: Pain, moderate (4-7) Ondansetron HCl (Zofran Inj) 4 mg IVP Q4H PRN PRN Reason: Nausea/Vomiting Pantoprazole Sodium (Protonix Inj) 40 mg IVP DAILY JASON Last Admin: 07/28/17 10:05 Dose: 40 mg Physical Exam - Constitutional Appears: Well, No Acute Distress - ENT Exam ENT Exam: Mucous Membranes Moist - GI/Abdominal Exam Additional comments: Soft, nontender, nondistended. No rebound. No guarding. No tenderness even with deep palpation Results - Vital Signs Recent Vital Signs: Last Vital Signs Temp 99.9 F H 07/28/17 06:00 Pulse 107 H 07/28/17 14:00 Resp 20 07/28/17 06:00 BP 127/74 07/28/17 06:00 Pulse Ox 95 07/28/17 06:00 - Labs Result Diagrams: 07/28/17 09:10 07/28/17 09:10 Labs: Laboratory Results - last 24 hr 07/28/17 07/28/17 09:10 09:10 WBC 13.9 H D RBC 3.78 Hgb 10.3 L D Hct 31.9 L MCV 84.4 MCH 27.2 MCHC 32.3 RDW 15.0 H Plt Count 287 MPV 9.7 Gran % 84.7 H Lymph % (Auto) 9.4 L Sandoval % (Auto) 5.6 Eos % (Auto) 0.2 L Baso % (Auto) 0.1 Gran # 11.75 H Lymph # 1.3 Sandoval # 0.8 H Eos # 0.0 Baso # 0.01 Sodium 141 Potassium 3.4 L Chloride 109 H Carbon Dioxide 20 L Anion Gap 16 BUN 6 L Creatinine 0.5 L Est GFR ( Amer) > 60 Est GFR (Non-Af Amer) > 60 Random Glucose 110 Calcium 8.5 Total Bilirubin 0.8 AST 23 ALT 29 Alkaline Phosphatase 59 Total Protein 7.0 Albumin 3.5 Globulin 3.5 Albumin/Globulin Ratio 1.0 L - Imaging and Cardiology US - abdomen Status: Image reviewed by me, Report reviewed by me Assessment & Plan - Assessment and Plan (Free Text) Assessment: 10 cm simple ovarian cyst. Patient asymptomatic at this time. Plan: Discussed ultrasound findings with patient. Discussed general information regarding ovarian cyst with patient. I discussed with patient the possibility of needing a procedure or surgery due to the cyst. Because patient is asymptomatic at this time without any pain, I would recommend follow-up as an outpatient. I discussed this plan with patient and all patient questions answered. I also discussed the plan with the general surgery resident present. - Date & Time Date: 07/28/17 Time: 16:43
--- NOTE | 2017-07-28 21:19 | PN ---
DATE: SUBJECTIVE: The patient is a 31-year-old challenged, still has persistent diarrhea. Denies any abdominal pain. No more nausea. PHYSICAL EXAMINATION: VITAL SIGNS: She has a temperature of 99.9, pulse of 107, respirations of 20, and blood pressure 127/74. LUNGS: Bilateral fair airflow. No rhonchi or crackles. HEART: S1 and S2 audible. ABDOMEN: Soft and nontender. No rebound. No guarding. NEUROLOGIC: She is awake and alert. LABORATORY EXAMINATION: WBC is 13.9, hemoglobin is 10.3, hematocrit is 31.9, and platelets of 287. Chemistry: Sodium 141, potassium 3.4, chloride 109, CO2 of 20, BUN 6, creatinine 0.5, and blood sugar of 110. Urine growing gram-negative rods. Stool for C. diff is negative. Blood cultures are negative. ASSESSMENT: 1. Ileus with gastroenteritis. 2. Hypokalemia. 3. Ovarian cyst. 4. Gram-negative and gram-positive urinary tract infection. 5. 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 PLAN: The patient was given just one dose of Imodium. Currently, she is on metronidazole. Calcium has been supplemented. We will continue her Protonix and Rocephin. Continue her on IV fluids. MRCP has been ordered by Dr. Tipton, we will follow that. We will follow up electrolytes in a.m. Juan Manuel Jones MD
[2017-07-28] MEDS: carBAMazepine Chew Tab 100 MG Chew Tab PO SCH (22:09)
[2017-07-29 04:30] LABS: BASO # 0.01 K/mm3 (0.0-2.0); BASO % 0.1 % (0.0-3.0); EOS # 0.1 (0.0-0.7); EOS % 0.5 % (1.5-5.0); GRAN # 8.16 (1.4-6.5); GRAN % 76.8 % (50.0-68.0); LYMPH # 1.8 (1.2-3.4); LYMPH % 16.5 % (22.0-35.0); MEAN CELL VOLUME 82.9 fl (80.0-105.0); MEAN CORPUSCULAR HEMOGLOBIN 26.8 pg (25.0-35.0); MEAN CORPUSCULAR HGB CONC 32.3 g/dl (31.0-37.0); MEAN PLATELET VOLUME 9.6 fl (7.0-11.0); MONO # 0.7 (0.1-0.6); MONO % 6.1 % (1.0-6.0); RED CELL DISTRIBUTION WIDTH 14.9 % (11.5-14.5); WHITE BLOOD COUNT 10.6 10^3/ul (4.5-11.0)
[2017-07-29 04:57] LABS: ALB/GLOB RATIO 0.9 (1.1-1.8); ALKALINE PHOSPHATASE 105 U/L (38-126); ALT/SGPT 43 U/L (7-56); AST/SGOT 26 U/L (14-36); BILIRUBIN,TOTAL 0.5 mg/dL (0.2-1.3); BLOOD UREA NITROGEN 4 mg/dL (7-21); CALCIUM 8.2 mg/dL (8.4-10.5); CARBON DIOXIDE 25 mmol/L (21-33); CHLORIDE 107 mmol/L (98-107); GFR AFRICAN-AMERICAN > 60; GLUCOSE,RANDOM 95 mg/dL (70-110); SODIUM 142 mmol/L (132-148); TOTAL PROTEIN 6.3 g/dL (5.8-8.3)
[2017-07-29 04:58] LABS: POTASSIUM 2.7 mmol/L (3.6-5.0)
[2017-07-29] MEDS: Sodium Chloride 0.9% 1,000 ML IV SCH ×2 (05:57→13:40)
[2017-07-29] MEDS: metroNIDAZOLE IV 500 mg/100 ml 500 MG/100 ML BAG IVPB SCH ×3 (05:58→22:06)
--- NOTE | 2017-07-29 07:19 | CP.PCM.PN ---
<Katia Denton - Last Filed: 07/29/17 07:14> Subjective - Date & Time of Evaluation Date of Evaluation: 07/29/17 Time of Evaluation: 07:00 - Subjective Subjective: Surgery: Dr. Tipton Pt seen and examined. This morning pt states she's doing well and denies any complaints. She states her diarrhea has improved significantly and she's feeling a lot better. Denies N/V, F/C. Objective - Vital Signs/Intake and Output Vital Signs (last 24 hours): Temp Pulse Resp BP Pulse Ox 98.9 F 98 H 20 117/69 97 07/29/17 06:00 07/29/17 06:00 07/29/17 06:00 07/29/17 06:00 07/29/17 06:00 Intake and Output: 07/29/17 07/29/17 06:59 18:59 Intake Total 180 Balance 180 - Medications Medications: Current Medications Acetaminophen (Tylenol 325mg Tab) 650 mg PO Q4H PRN PRN Reason: Pain, Mild (1-3) Carbamazepine (Tegretol) 100 mg PO HS JASON PRN Reason: Protocol Last Admin: 07/28/17 22:09 Dose: 100 mg Sodium Chloride (Sodium Chloride 0.9%) 1,000 mls @ 100 mls/hr IV .Q10H [facility] Last Admin: 07/29/17 05:57 Dose: 100 mls/hr Metronidazole (Flagyl) 500 mg in 100 mls @ 100 mls/hr IVPB Q8 JASON PRN Reason: Protocol Last Admin: 07/29/17 05:58 Dose: 100 mls/hr Ceftriaxone Sodium (Rocephin 1 Gram Ivpb (D5w)) 1 gm in 100 mls @ 100 mls/hr IVPB DAILY JASON PRN Reason: Protocol Potassium Chloride (Potassium Chloride 20 Meq/100 Ml) 20 meq in 100 mls @ 50 mls/hr IVPB Q2H [facility] Stop: 07/29/17 09:59 Last Admin: 07/29/17 06:07 Dose: 50 mls/hr Morphine Sulfate (Morphine) 2 mg IVP Q4H PRN PRN Reason: Pain, moderate (4-7) Ondansetron HCl (Zofran Inj) 4 mg IVP Q4H PRN PRN Reason: Nausea/Vomiting Pantoprazole Sodium (Protonix Inj) 40 mg IVP DAILY JASON Last Admin: 07/28/17 10:05 Dose: 40 mg - Labs Labs: 07/29/17 04:10 07/29/17 04:10 - Constitutional Appears: Well, No Acute Distress - Head Exam Head Exam: ATRAUMATIC, NORMOCEPHALIC - ENT Exam ENT Exam: Mucous Membranes Moist - Respiratory Exam Respiratory Exam: NORMAL BREATHING PATTERN - Cardiovascular Exam Cardiovascular Exam: RRR - GI/Abdominal Exam GI & Abdominal Exam: Soft. absent: Distended, Tenderness - Neurological Exam Neurological Exam: Alert, Awake, Oriented x3 - Skin Skin Exam: Dry, Warm Assessment and Plan - Assessment and Plan (Free Text) Assessment: 31F with R ovarian cyst, admitted for abdominal pain & vomiting Plan: - Yesterday, pt's US findings of ovarian cyst were discussed with pt and father at bedside along with Dr. Cerrato from set up machinist. As per his recs, the cyst is no longer causing the pt problems and should be followed up at an outpt basis. If pt experiences pain in the future or other related issues, Dr. Cerrato will f/ u as outpt and at that time other measures can be taken to evaluate the etiology of the cyst. Pt and family understand and are in agreement with this plan. - pt getting MRCP today to evaluate CBD dilatation - will start diet after and if tolerates; can be DC home - d/w Dr. Tipton <Santhosh Tipton - Last Filed: 07/29/17 16:27> Objective - Vital Signs/Intake and Output Vital Signs (last 24 hours): Temp Pulse Resp BP Pulse Ox 98.9 F 95 H 20 134/82 97 07/29/17 12:00 07/29/17 12:00 07/29/17 12:00 07/29/17 12:00 07/29/17 06:00 Intake and Output: 07/29/17 07/29/17 06:59 18:59 Intake Total 180 Balance 180 - Medications Medications: Current Medications Acetaminophen (Tylenol 325mg Tab) 650 mg PO Q4H PRN PRN Reason: Pain, Mild (1-3) Carbamazepine (Tegretol) 100 mg PO HS JASON PRN Reason: Protocol Last Admin: 07/28/17 22:09 Dose: 100 mg Sodium Chloride (Sodium Chloride 0.9%) 1,000 mls @ 100 mls/hr IV .Q10H [facility] Last Admin: 07/29/17 13:40 Dose: 100 mls/hr Metronidazole (Flagyl) 500 mg in 100 mls @ 100 mls/hr IVPB Q8 JASON PRN Reason: Protocol Last Admin: 07/29/17 14:58 Dose: 100 mls/hr Ceftriaxone Sodium (Rocephin 1 Gram Ivpb (D5w)) 1 gm in 100 mls @ 100 mls/hr IVPB DAILY JASON PRN Reason: Protocol Last Admin: 07/29/17 11:15 Dose: 100 mls/hr Morphine Sulfate (Morphine) 2 mg IVP Q4H PRN PRN Reason: Pain, moderate (4-7) Ondansetron HCl (Zofran Inj) 4 mg IVP Q4H PRN PRN Reason: Nausea/Vomiting Pantoprazole Sodium (Protonix Inj) 40 mg IVP DAILY [facility] Last Admin: 07/29/17 11:15 Dose: 40 mg Potassium Chloride (K-Dur 20 Meq Er Tab) 20 meq PO TID JASON Stop: 07/31/17 10:01 Last Admin: 07/29/17 14:58 Dose: 20 meq - Labs Labs: 07/29/17 04:10 07/29/17 14:20 Assessment and Plan - Assessment and Plan (Free Text) Assessment: Family discussion (and with PMD Dr Padilla) that pt will need Lap Cholecystectomy Brittany Tipton MD FACS
[2017-07-29] MEDS: Potassium Chloride 20 mEq ER Tab PO SCH ×3 (11:15→18:06)
[2017-07-29] MEDS: cefTRIAXone 1 gm 1 GM/100 ML BAG IVPB SCH (11:15)
--- NOTE | 2017-07-29 11:19 | CON ---
DATE: 07/28/2017 This patient was seen and evaluated earlier today. The patient's father was at bedside at the time of examination. REASON FOR CONSULTATION: Abdominal pain. 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 The patient had a Thanksgiving dinner and after that episodes of vomiting. These initially subsided but the patient had recurrence of the symptoms. The patient was brought to the hospital because of this. No history of any bleeding per rectum. The patient had abdominal pain. The patient had a CAT scan done, which showed large ovarian cystic lesion noticed. The patient was also found to have multiple gallstones with a mildly dilated common bile duct of 9 mm. The patient has been ordered to have an MRCP. The patient is waiting to hear from them. PAST MEDICAL HISTORY: Seizure disorder. ALLERGIES: No known drug allergy. MEDICATIONS: Include Tegretol, she takes it for her seizure disorder. SOCIAL HISTORY: Denies smoking. No alcohol. REVIEW OF SYSTEMS: Positive as above. Other systems reviewed. PHYSICAL EXAMINATION GENERAL: The patient is lying on the bed, not in acute distress. VITAL SIGNS: Temperature is 99, pulse 104, blood pressure is 123/75. HEENT: Atraumatic, anicteric. NECK: Supple. HEART: S1, S2 heard. LUNGS: Bilateral air entry present. ABDOMEN: Softly distended, no tenderness. EXTREMITIES: No edema, no cyanosis. LABORATORY DATA: Hemoglobin 10.3, hematocrit 31.9, WBC is 13.9, it was 22.6, platelets 387. Chemistry is essentially unremarkable. IMPRESSION: This is a 36-year-old patient admitted with abdominal pain, nausea . The differential diagnoses to include peptic ulcer disease, erosive esophagitis; neoplasia also to be considered. Clinically, the patient has gastroparesis. The CT findings are reviewed with the family. PLAN: We would recommend; 1. Follow up of the MRCP, rule out any CBD stones, multiple gallstones and dilated common bile duct. 2. We will continue the empiric PPI therapy. I would continue the H2 kleber. 3. Stool for culture. We will continue to closely follow. 4. We will put the patient on a clear liquid diet. The patient would benefit from elective EGD and colonoscopy. Last colonoscopy was done a few years ago. Thank you very much for allowing us to participate in the care of the patient. Olivia Monet MD
--- NOTE | 2017-07-29 13:29 | CP.PCM.PN ---
<Maribell Crowley - Last Filed: 07/29/17 13:21> Subjective - Date & Time of Evaluation Date of Evaluation: 07/29/17 Time of Evaluation: 10:45 - Subjective Subjective: Seen and examined at bedside earlier this a.m., father at bedside, no further episodes of diarrhea, did have dose of Imodium yesterday. No abdominal pain, nausea, vomiting, fever or chills. Stool C. difficile is negative, stool culture pending. Patient evaluated by DIRECTOR BUSINESS INTEGRATION yesterday. Recommend outpatient follow-up, patient asymptomatic, head animal trainer consult was reviewed. Patient is nothing by mouth for MRCP. Objective - Vital Signs/Intake and Output Vital Signs (last 24 hours): Temp Pulse Resp BP Pulse Ox 98.9 F 95 H 20 134/82 97 07/29/17 12:00 07/29/17 12:00 07/29/17 12:00 07/29/17 12:00 07/29/17 06:00 Intake and Output: 07/29/17 07/29/17 06:59 18:59 Intake Total 180 Balance 180 - Medications Medications: Current Medications Acetaminophen (Tylenol 325mg Tab) 650 mg PO Q4H PRN PRN Reason: Pain, Mild (1-3) Carbamazepine (Tegretol) 100 mg PO HS JASON PRN Reason: Protocol Last Admin: 07/28/17 22:09 Dose: 100 mg Sodium Chloride (Sodium Chloride 0.9%) 1,000 mls @ 100 mls/hr IV .Q10H [facility] Last Admin: 07/29/17 05:57 Dose: 100 mls/hr Metronidazole (Flagyl) 500 mg in 100 mls @ 100 mls/hr IVPB Q8 JASON PRN Reason: Protocol Last Admin: 07/29/17 05:58 Dose: 100 mls/hr Ceftriaxone Sodium (Rocephin 1 Gram Ivpb (D5w)) 1 gm in 100 mls @ 100 mls/hr IVPB DAILY JASON PRN Reason: Protocol Last Admin: 07/29/17 11:15 Dose: 100 mls/hr Morphine Sulfate (Morphine) 2 mg IVP Q4H PRN PRN Reason: Pain, moderate (4-7) Ondansetron HCl (Zofran Inj) 4 mg IVP Q4H PRN PRN Reason: Nausea/Vomiting Pantoprazole Sodium (Protonix Inj) 40 mg IVP DAILY [facility] Last Admin: 07/29/17 11:15 Dose: 40 mg Potassium Chloride (K-Dur 20 Meq Er Tab) 20 meq PO TID JASON Stop: 07/31/17 10:01 Last Admin: 07/29/17 11:15 Dose: 20 meq - Labs Labs: 07/29/17 04:10 07/29/17 04:10 - Constitutional Appears: No Acute Distress - Eye Exam Eye Exam: Normal appearance. absent: Scleral icterus - ENT Exam ENT Exam: Mucous Membranes Moist - Neck Exam Neck Exam: Normal Inspection - Respiratory Exam Respiratory Exam: Decreased Breath Sounds, NORMAL BREATHING PATTERN. absent: Respiratory Distress - Cardiovascular Exam Cardiovascular Exam: +S1, +S2 - GI/Abdominal Exam GI & Abdominal Exam: Distended, Soft, Normal Bowel Sounds. absent: Guarding, Tenderness, Rebound - Extremities Exam Extremities Exam: absent: Calf Tenderness, Pedal Edema - Neurological Exam Neurological Exam: Alert, Awake, Oriented x3 Assessment and Plan - Assessment and Plan (Free Text) Assessment: Assessment: Improved abdominal and vomiting, differentials gastroenteritis/ileus Dilated CBD Gastroparesis Hypokalemia 10 cm simple ovarian cyst Plan: Pending MRCP, follow up results Monitor electrolytes and replete as needed Continue PPI Continue IV antibiotics, flagyl/ceftriaxone Surgical follow-up Seen and discussed w/ Dr. Shankar. <Olivia Monet V - Last Filed: 07/29/17 23:27> Objective - Vital Signs/Intake and Output Vital Signs (last 24 hours): Temp Pulse Resp BP Pulse Ox 98.9 F 106 H 20 134/82 97 07/29/17 12:00 07/29/17 22:00 07/29/17 12:00 07/29/17 12:00 07/29/17 06:00 Intake and Output: 07/29/17 07/30/17 18:59 06:59 Intake Total 1200 Balance 1200 - Medications Medications: Current Medications Acetaminophen (Tylenol 325mg Tab) 650 mg PO Q4H PRN PRN Reason: Pain, Mild (1-3) Carbamazepine (Tegretol) 100 mg PO HS JASON PRN Reason: Protocol Last Admin: 07/29/17 22:17 Dose: 100 mg Sodium Chloride (Sodium Chloride 0.9%) 1,000 mls @ 100 mls/hr IV .Q10H [facility] Last Admin: 07/29/17 13:40 Dose: 100 mls/hr Metronidazole (Flagyl) 500 mg in 100 mls @ 100 mls/hr IVPB Q8 JASON PRN Reason: Protocol Last Admin: 07/29/17 22:06 Dose: 100 mls/hr Ceftriaxone Sodium (Rocephin 1 Gram Ivpb (D5w)) 1 gm in 100 mls @ 100 mls/hr IVPB DAILY JASON PRN Reason: Protocol Last Admin: 07/29/17 11:15 Dose: 100 mls/hr Morphine Sulfate (Morphine) 2 mg IVP Q4H PRN PRN Reason: Pain, moderate (4-7) Ondansetron HCl (Zofran Inj) 4 mg IVP Q4H PRN PRN Reason: Nausea/Vomiting Pantoprazole Sodium (Protonix Inj) 40 mg IVP DAILY [facility] Last Admin: 07/29/17 11:15 Dose: 40 mg Potassium Chloride (K-Dur 20 Meq Er Tab) 20 meq PO TID [facility] Stop: 07/31/17 10:01 Last Admin: 07/29/17 18:06 Dose: 20 meq - Labs Labs: 07/29/17 04:10 07/29/17 14:20 Attending/Attestation - Attestation I have personally seen and examined this patient.: Yes I have fully participated in the care of the patient.: Yes I have reviewed all pertinent clinical information, including history, physical exam and plan: Yes Notes (Text): this is an addendum to the GI progress report dictated by me Carline LOCO. The patient was seen and evaluated earlier. Patient's father was at bedside Patient is tolerating diet and was feeling better On examination abdomen was soft no tenderness WBC count shows downward trend MRCP report was reviewed CBD normal no stones. Patient has multiple gallstones part of the symptoms could be related to the biliary colic Patient has a large ovarian cyst Patient Would need a DIRECTOR BUSINESS INTEGRATION and a surgical follow-up as an outpatient Patient Would needed surgery for symptomatic gallstones 07/29/17 23:24
--- NOTE | 2017-07-29 17:45 | MRI ---
PROCEDURE: Magnetic Resonance Cholangiopancreatography HISTORY: Evaluate dilated CBD COMPARISON: Comparison is made to the previous CT and ultrasound of the abdomen dated 07/27/2017. TECHNIQUE: Multiplanar, multisequence MR images of the abdomen were obtained, including heavily T2 weighted MRCP images of the biliary system. Rotating maximum intensity projection images of the biliary system were generated. FINDINGS: MRCP: The common bile duct is of a normal caliber. No evidence of choledocholithiasis. No intrahepatic biliary ductal dilatation. LIVER: Unremarkable. GALLBLADDER: Multiple gallstones are noted. No evidence of cholecystitis. SPLEEN: Unremarkable. PANCREAS: Unremarkable. ADRENALS: Unremarkable. KIDNEYS: Unremarkable. AORTA: No aneurysm. ASCITES: Small amount of ascites seen in the upper abdomen. OTHER FINDINGS: Incidentally noted is 13.1 x 11.8 centimeter cystic lesion at the midline lower abdomen/ upper pelvis best described and seen in the previous CT. IMPRESSION: The CBD is normal in caliber and shape. No evidence of choledocholithiasis. Cholelithiasis without evidence of acute cholecystitis. Small ascites in the upper abdomen. Partially imaged large cystic mass at the midline lower abdomen .
[2017-07-29 20:19] LABS: PH,URINE 5.5 (4.7-8.0); URINE BILIRUBIN NEGATIVE (NEGATIVE); URINE BLOOD TRACE-LYSED (NEGATIVE); URINE GLUCOSE (UA) NEGATIVE (NEGATIVE); URINE KETONE >=80 mg/dL (NEGATIVE); URINE LEUKOCYTE ESTERASE NEGATIVE Leu/uL (NEGATIVE); URINE PROTEIN NEGATIVE mg/dL (<30 mg/dL); URINE UROBILINOGEN 0.2 E.U./dL (<1 E.U./dL)
[2017-07-29 20:21] LABS: URINE APPEARANCE CLEAR (CLEAR); URINE COLOR YELLOW (YELLOW)
[2017-07-29 20:28] LABS: URINE BACTERIA TRACE (NEG)
[2017-07-29] MEDS: carBAMazepine Chew Tab 100 MG Chew Tab PO SCH (22:17)
--- NOTE | 2017-07-29 23:01 | PN ---
DATE: SUBJECTIVE: The patient is 31-year-old seen and examined, doing well, started on food, seems to be tolerating. No more diarrhea since Imodium yesterday. No abdominal pain. PHYSICAL EXAMINATION VITAL SIGNS: She is afebrile, pulse 95, respirations 20 and blood pressure 134/82. LUNGS: Bilateral fair airflow. No rhonchi or crackle. HEART: S1 and S2 audible. ABDOMEN: Soft, obese and nontender. No rebound. No guarding. NEUROLOGIC: She is awake, alert, oriented, communicative and ambulatory. LABORATORY EXAMINATION: WBC 10.6, hemoglobin 9.7, hematocrit 30, and platelet 318. Chemistry: Sodium 142, potassium 2.7, chloride 107, CO2 25, BUN 4, creatinine 0.5 and blood sugar of 95. She was given 2 riders potassium, followup is 3.2. We will supplement with 2 more IV KCl. She had MRCP done that is negative for any common bile duct occlusion. ASSESSMENT: 1. Probably gastroenteritis, leukocytosis improving. I cannot explain the reason for leukocytosis. 2. Cholelithiasis, but no evidence of cholecystitis. 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 PLAN: We will supplement potassium. Discussed with Dr. Monet. We will reevaluate the patient in a.m., and possible discharge in a.m. if her electrolytes are within normal range and she is tolerating food. Juan Manuel Jones MD
[2017-07-30] MEDS: Sodium Chloride 0.9% 1,000 ML IV SCH ×2 (01:51→09:35)
[2017-07-30 05:51] VITALS: BP 106/76; PULSE 98; RESP 18; TEMP 98.2; O2SAT 97
[2017-07-30] MEDS ORDERED: Pantoprazole 40 mg EC Tab PO SCH (06:00)
[2017-07-30 07:08] LABS: BASO # 0.01 K/mm3 (0.0-2.0); BASO % 0.1 % (0.0-3.0); EOS # 0.1 (0.0-0.7); EOS % 0.8 % (1.5-5.0); GRAN # 8.32 (1.4-6.5); GRAN % 78.2 % (50.0-68.0); HEMATOCRIT 29.7 % (36.0-48.0); LYMPH # 1.5 (1.2-3.4); LYMPH % 14.3 % (22.0-35.0); MEAN CELL VOLUME 83.2 fl (80.0-105.0); MEAN CORPUSCULAR HEMOGLOBIN 26.9 pg (25.0-35.0); MEAN CORPUSCULAR HGB CONC 32.3 g/dl (31.0-37.0); MEAN PLATELET VOLUME 8.9 fl (7.0-11.0); MONO # 0.7 (0.1-0.6); MONO % 6.6 % (1.0-6.0); RED CELL DISTRIBUTION WIDTH 14.9 % (11.5-14.5); WHITE BLOOD COUNT 10.6 10^3/ul (4.5-11.0)
[2017-07-30 08:05] LABS: ALB/GLOB RATIO 0.9 (1.1-1.8); ALKALINE PHOSPHATASE 85 U/L (38-126); ALT/SGPT 37 U/L (7-56); AST/SGOT 21 U/L (14-36); BILIRUBIN,TOTAL 0.5 mg/dL (0.2-1.3); BLOOD UREA NITROGEN 4 mg/dL (7-21); CALCIUM 8.6 mg/dL (8.4-10.5); CARBON DIOXIDE 25 mmol/L (21-33); CHLORIDE 106 mmol/L (98-107); GFR AFRICAN-AMERICAN > 60; GLUCOSE,RANDOM 89 mg/dL (70-110); POTASSIUM 3.9 mmol/L (3.6-5.0); SODIUM 141 mmol/L (132-148); TOTAL PROTEIN 6.3 g/dL (5.8-8.3)
--- NOTE | 2017-07-30 08:43 | CP.PCM.PCO ---
Physician Communication Note - Physician Communication Note Physician Communication Note: OK d/c:f/u office for interval lap cholecystectomy
[2017-07-30] MEDS: Potassium Chloride 20 mEq ER Tab PO SCH (09:28)
[2017-07-30] MEDS: cefTRIAXone 1 gm 1 GM/100 ML BAG IVPB SCH (09:28)
[2017-07-30] MEDS ORDERED: Influenza Vaccine 60 mcg/0.5 mL SYR (4YR UP) IM ONE (09:40)
--- NOTE | 2017-07-30 09:55 | CP.PCM.PN ---
Subjective - Date & Time of Evaluation Date of Evaluation: 07/30/17 Time of Evaluation: 09:49 - Subjective Subjective: Surgery Progress Note for Dr. Tipton: Pt seen and examined at bedside. Pt denied acute overnight events. Pt is OOB. Pt beni diet. Pt denied CP, SOB, n/v/d, abdominal pain, chills, fever, and ROGERS. Objective - Vital Signs/Intake and Output Vital Signs (last 24 hours): Temp Pulse Resp BP Pulse Ox 98.2 F 98 H 18 106/76 97 07/30/17 05:50 07/30/17 05:50 07/30/17 05:50 07/30/17 05:50 07/30/17 05:50 Intake and Output: 07/30/17 07/30/17 06:59 18:59 Intake Total 1500 Output Total 300 Balance 1200 - Medications Medications: Current Medications Acetaminophen (Tylenol 325mg Tab) 650 mg PO Q4H PRN PRN Reason: Pain, Mild (1-3) Carbamazepine (Tegretol) 100 mg PO HS JASON PRN Reason: Protocol Last Admin: 07/29/17 22:17 Dose: 100 mg Sodium Chloride (Sodium Chloride 0.9%) 1,000 mls @ 100 mls/hr IV .Q10H [facility] Last Admin: 07/30/17 09:35 Dose: 100 mls/hr Ceftriaxone Sodium (Rocephin 1 Gram Ivpb (D5w)) 1 gm in 100 mls @ 100 mls/hr IVPB DAILY JASON PRN Reason: Protocol Last Admin: 07/30/17 09:28 Dose: 100 mls/hr Metronidazole (Flagyl) 500 mg PO Q8 [facility] Last Admin: 07/30/17 05:00 Dose: 500 mg Morphine Sulfate (Morphine) 2 mg IVP Q4H PRN PRN Reason: Pain, moderate (4-7) Ondansetron HCl (Zofran Inj) 4 mg IVP Q4H PRN PRN Reason: Nausea/Vomiting Pantoprazole Sodium (Protonix Ec Tab) 40 mg PO 0600 [facility] Last Admin: 07/30/17 05:00 Dose: 40 mg Potassium Chloride (K-Dur 20 Meq Er Tab) 20 meq PO TID JASON Stop: 07/31/17 10:01 Last Admin: 07/30/17 09:28 Dose: 20 meq - Labs Labs: 07/30/17 06:50 07/30/17 06:50 - Constitutional Appears: No Acute Distress - Head Exam Head Exam: ATRAUMATIC, NORMOCEPHALIC - Eye Exam Eye Exam: EOMI, PERRL - ENT Exam ENT Exam: Mucous Membranes Moist - Respiratory Exam Respiratory Exam: Clear to Ausculation Bilateral. absent: Rales, Rhonchi, Wheezes - GI/Abdominal Exam GI & Abdominal Exam: Soft. absent: Firm, Guarding, Tenderness, Rebound - Extremities Exam Extremities Exam: Normal Inspection - Neurological Exam Neurological Exam: Alert, Awake, Oriented x3 - Psychiatric Exam Psychiatric exam: Normal Affect, Normal Mood - Skin Skin Exam: Dry, Intact, Normal Color, Warm Assessment and Plan - Assessment and Plan (Free Text) Assessment: 31F with R ovarian cyst, admitted for abdominal pain & vomiting Plan: - MRCP showed cholelithiasis, but no choledocolithiasis, no CBD dilation - Tolerated diet - F/u with OBGYN, Dr. Cerrato, as outpatient for ovarian cyst - F/u as outpatient for interval Lap pantera if symptomatic - Can be D/C from surgical standpoint, will sign off DW Dr. Saeed Garcia, PGY1 Thank you for allowing us to participate in the care of this patient.
--- NOTE | 2017-07-30 13:08 | CP.PCM.PN ---
Subjective - Date & Time of Evaluation Date of Evaluation: 07/30/17 Time of Evaluation: 10:15 - Subjective Subjective: S&E at bedside, chart reviewed, father at bedside, had 2 BM this am, initial loose but second was formed, no bleeding. tolerated oral intake, no N/V or abdominal pain. MRCP show gallstones, no CBD stones, see [facility] for full report. Objective - Vital Signs/Intake and Output Vital Signs (last 24 hours): Temp Pulse Resp BP Pulse Ox 98.2 F 98 H 18 106/76 97 07/30/17 05:50 07/30/17 05:50 07/30/17 05:50 07/30/17 05:50 07/30/17 05:50 Intake and Output: 07/30/17 07/30/17 06:59 18:59 Intake Total 1500 Output Total 300 Balance 1200 - Medications Medications: Current Medications Acetaminophen (Tylenol 325mg Tab) 650 mg PO Q4H PRN PRN Reason: Pain, Mild (1-3) Carbamazepine (Tegretol) 100 mg PO HS JASON PRN Reason: Protocol Last Admin: 07/29/17 22:17 Dose: 100 mg Sodium Chloride (Sodium Chloride 0.9%) 1,000 mls @ 100 mls/hr IV .Q10H [facility] Last Admin: 07/30/17 09:35 Dose: 100 mls/hr Ceftriaxone Sodium (Rocephin 1 Gram Ivpb (D5w)) 1 gm in 100 mls @ 100 mls/hr IVPB DAILY JASON PRN Reason: Protocol Last Admin: 07/30/17 09:28 Dose: 100 mls/hr Metronidazole (Flagyl) 500 mg PO Q8 [facility] Last Admin: 07/30/17 05:00 Dose: 500 mg Morphine Sulfate (Morphine) 2 mg IVP Q4H PRN PRN Reason: Pain, moderate (4-7) Ondansetron HCl (Zofran Inj) 4 mg IVP Q4H PRN PRN Reason: Nausea/Vomiting Pantoprazole Sodium (Protonix Ec Tab) 40 mg PO 0600 [facility] Last Admin: 07/30/17 05:00 Dose: 40 mg Potassium Chloride (K-Dur 20 Meq Er Tab) 20 meq PO TID JASON Stop: 07/31/17 10:01 Last Admin: 07/30/17 09:28 Dose: 20 meq - Labs Labs: 11/29/17 06:50 07/30/17 06:50 - Constitutional Appears: No Acute Distress - Head Exam Head Exam: NORMOCEPHALIC - Eye Exam Eye Exam: absent: Scleral icterus - ENT Exam ENT Exam: Mucous Membranes Moist - Respiratory Exam Respiratory Exam: NORMAL BREATHING PATTERN. absent: Respiratory Distress - Cardiovascular Exam Cardiovascular Exam: +S1, +S2 - GI/Abdominal Exam GI & Abdominal Exam: Soft, Normal Bowel Sounds. absent: Guarding, Tenderness, Organomegaly, Rebound - Extremities Exam Extremities Exam: absent: Calf Tenderness, Pedal Edema - Neurological Exam Neurological Exam: Alert, Awake, Oriented x3 Assessment and Plan - Assessment and Plan (Free Text) Assessment: Assessment: Improved abdominal and vomiting, differentials gastroenteritis/ileus Dilated CBD, s/p MRCP, no CBD dilitaion or CBD stones, (+) for gallstones Gastroparesis Hypokalemia,resolved 10 cm simple ovarian cyst Plan: plan for DC home today, discuss w/ patient and father at bedside, outpatient FU , surgical FU for consideration of elective cholecystectomy, and 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 Shankar.
--- NOTE | 2017-07-31 00:33 | DS ---
HISTORY OF PRESENT ILLNESS: The patient is a 31-year-old who was initially admitted with abdominal pain. She on when they went to the other family member for libertarian, when she came home the next day, she started to have abdominal pain, slight abdominal discomfort, and diarrhea, so father brought her to emergency room for further evaluation. He noticed slight fever at home. They give her liquid diet with no significant improvement, so she was brought to emergency room on 07/27/2017. PAST MEDICAL HISTORY: The patient does have past medical history significant for: 1. Layton de Liao syndrome. 2. History of seizure disorder. 3. Cholelithiasis. HOSPITAL COURSE: The patient was kept n.p.o. She was given IV fluids. She had CT scan done that showed ileus and abdominal sonogram showed cholelithiasis, but no dilatation of common bile duct. She underwent MRCP that showed common bile duct is normal in caliber, no evidence of cholelithiasis without evidence of acute cholecystitis. ASSESSMENT: 1. Probably gastroenteritis. 2. Leukocytosis, improved. 3. Ingrid de Liao syndrome. 4. Seizure disorder. PLAN: The patient is clinically stable, eating and tolerating. No more diarrhea, so she is advised to follow up with Dr. Monet as an outpatient for further evaluation for her cholelithiasis. She will resume her Tegretol that was advised to her father. She will follow up with us in a.m. Juan Manuel Jones MD
== END 2017-07-30 13:04 | disposition home or self-care (01) | DRG 392 ==
LOC: ED 00:19 → ERH 05:21 → 3RSO 08:13
PROVIDERS: ADMIT Internal Medicine; ATTEND Internal Medicine
DX: K52.9 Noninfective gastroenteritis and colitis, unspecified (principal); N39.0 Urinary tract infection, site not specified; K56.7 Ileus, unspecified; Q87.1 Congenital malformation syndromes predominantly associated with short stature; K31.84 Gastroparesis; N83.201 Unspecified ovarian cyst, right side; K80.20 Calculus of gallbladder without cholecystitis without obstruction; G40.909 Epilepsy, unspecified, not intractable, without status epilepticus; E87.6 Hypokalemia; K83.8 Other specified diseases of biliary tract